=== PATIENT | male | born 1935 | race Asian ===

== ENCOUNTER 2017-09-29 13:53 | Inpatient (IN) | payer OTHER, MEDICARE ==
[~2017-09-29] VITALS: Ht 165.1 cm; Wt 67.6 kg
--- NOTE | 2017-09-29 13:54 | NUR ---
SAUMYA HOBBS, CURRENTLY AWAITING ROOM
[2017-09-29 13:55] VITALS: BP 97/61
--- NOTE | 2017-09-29 14:00 | NUR ---
82 Y/O M W/C/O GENERAL WEAKNESS AND DECREASED APPETITE X 2 DAYS CHRONIC RASH TO LEGS TORSO, INCREASED X YESTERDAY---EMS ADMINISTERED 25MG BENADRYL IV---DENIES N/V/D +ORTHOSTATICS HX---HTN, DM, GOUT RX----LISINOPRIL 20MG QD, AMLODIPINE 10MG QD, METFORMIN 500MG BID, ALLOPURINOL 100MG QD, COLCHINCINE 0.6MG BID PAIN, IRON 65MG , CENTRUM SILVER
--- NOTE | 2017-09-29 14:13 | NUR ---
PT TAKEN TO BED 2 BY EMS CREW
[2017-09-29] MEDS ORDERED: NACL 0.9% 1,000 ML IV ONE (14:50)
--- NOTE | 2017-09-29 15:00 | NUR ---
PT RESTING COMFORTABLY IN BED. NO S/S OF DISTRESS NOTED. DAUGHTER AT THE BEDSIDE
[2017-09-29 15:23] LABS: BASOPHILS % (AUTO) 0.3 % (0.0-2.0); EOSINOPHILS # (AUTO) 1.8 K/uL (0-0.4); EOSINOPHILS % (AUTO) 12.6 % (0.0-4.0); HEMATOCRIT 31.8 % (36-52); HEMOGLOBIN 9.8 g/dL (12.0-18.0); LYMPHOCYTES # (AUTO) 0.9 K/uL (2.0-11.5); LYMPHOCYTES % (AUTO) 6.4 % (20.5-51.1); MEAN CORPUSCULAR HEMOGLOBIN 25 pg (27-31); MEAN CORPUSCULAR HGB CONC 31 g/dL (33-37); MEAN CORPUSCULAR VOLUME 81.2 fL (80-94); MONOCYTES # (AUTO) 0.5 K/uL (0.8-1.0); MONOCYTES % (AUTO) 3.4 % (1.7-9.3); NEUTROPHILS # (AUTO) 10.8 K/uL (1.8-7.7); NEUTROPHILS % (AUTO) 77.3 % (42.2-75.2); PLATELET COUNT (AUTO) 395 K/uL (140-450); RED BLOOD CELL COUNT(AUTO) 3.91 MIL/uL (4.20-6.10); RED CELL DISTRIBUTION WIDTH 17.5 % (11.6-13.7)
[2017-09-29 15:42] LABS: APPEARANCE,URINE CLEAR (CLEAR); BILIRUBIN,URINE NEGATIVE (NEGATIVE); BLOOD, URINE NEGATIVE (NEGATIVE); COLOR,URINE YELLOW (YELLOW); LEUKOCYTE ESTERASE ,URINE NEGATIVE (NEGATIVE); NITRITE, URINE NEGATIVE (NEGATIVE); PH,URINE 5.5 (5.0-9.0); UGLUCOSE NEGATIVE (NEGATIVE)
[2017-09-29 15:43] LABS: ANION GAP 17.1 (8-16); CARBON DIOXIDE 19.4 mmol/L (21-32); CHLORIDE 99 mmol/L (98-107); CREATININE 2.3 mg/dL (0.7-1.3); GLUCOSE 103 mg/dL (74-106); POTASSIUM 4.5 mmol/L (3.5-5.1); SODIUM SERUM 131 mmol/L (136-145); UREA NITROGEN, BLOOD 34 mg/dL (7-18)
[2017-09-29 15:49] LABS: ALBUMIN 2.7 g/dL (3.4-5.0); ASPARTATE AMINOTRANSFERASE 10 U/L (15-37); TOTAL BILIRUBIN 0.3 mg/dL (0.0-1.0)
--- NOTE | 2017-09-29 16:45 | NUR ---
PT RESTING COMFORTABLY IN BED. NO S/S OF DISTRESS NOTED. RR EVEN/UNLABORED. PT GIVEN URINAL. DAUGHTER AT THE BEDSIDE
--- NOTE | 2017-09-29 17:30 | NUR ---
NOTED PT TACHY 140'S AND SHIVERING---MD NOTIFIED RECTAL TEMP 100.6 F
[2017-09-29] MEDS ORDERED: ACETAMINOPHEN 650 MG/20.3 ML UDC PO ONE (17:40)
[2017-09-29] MEDS ORDERED: NACL 0.9% 500 ML IV ONE (17:40)
[2017-09-29] MEDS ORDERED: ACETAMINOPHEN 650 MG/20.3 ML UDC ONE (17:41)
--- NOTE | 2017-09-29 18:10 | NUR ---
MD at bedside---pt continues to denie pain, mild sob--placed on 3L NC denies headache or nausea ----will continue to observe and monitor for changes.
[2017-09-29] MEDS ORDERED: AMLO10TA PO (18:28)
[2017-09-29] MEDS ORDERED: METF500T PO (18:28)
[2017-09-29] MEDS ORDERED: LISI-420 PO (18:28)
[2017-09-29] MEDS ORDERED: COLC0.6C PO (18:28)
[2017-09-29] MEDS ORDERED: MULT-2527 PO (18:28)
[2017-09-29] MEDS ORDERED: FERR-252 PO (18:28)
[2017-09-29] MEDS ORDERED: ALLO100T21 PO (18:28)
--- NOTE | 2017-09-29 18:30 | NUR ---
Patient will be admitted to care of DR. BRIGGS. Admited to TELE. Will go to room 112 A. Belongings list completed. Report to AUTUMN XIONG.
[2017-09-29] MEDS ORDERED: MORPHINE SULFATE 2 MG/ML SYR IVP PRN (18:35)
[2017-09-29] MEDS ORDERED: INSULIN LISPRO SLIDING SCALE 100 UNITS/ML VIAL SUBQ PRN (18:35)
[2017-09-29] MEDS ORDERED: DEXTROSE 50% 50 ML SYR IVP PRN (18:35)
[2017-09-29] MEDS ORDERED: ONDANSETRON 4 MG/2 ML VIAL IVP PRN (18:35)
--- NOTE | 2017-09-29 20:25 | NUR ---
ADMITTED A 82 Y/O MALE FROM ER VIA [facility] WITH CHIEF COMPLAIN OF GENERALIZED WEAKNESS. PATIENT TRANSFERRED TO BED WITH 1 ASSIST. PATIENT AAOX3, ABLE TO FOLLOW COMMANDS. MRSA NASAL SWAB DONE. NO PERSONAL BELONGINGS. PLAN OF CARE EXPLAINED TO PATIENT. FALL PRECAUTION IMPLEMENTED. CALL LIGHT WITHIN REACH. ROUTINE ADMISSION CARE AND CARRY OUT ORDERS.WILL CONTINUE TO MONITOR.
[2017-09-29] MEDS ORDERED: metFORMIN 500 MG TAB PO SCH (21:00)
[2017-09-29] MEDS: NACL 0.9% 1,000 ML IV SCH (21:00)
[2017-09-29] MEDS: LEVOFLOXACIN 250 MG/D5 PREMIX 50 ML IV SCH (21:05)
[2017-09-29] MEDS: BLOOD GLUCOSE MONITORING 1 DEV DEV FS SCH (21:13)
[2017-09-29] MEDS ORDERED: VANCOMYCIN PER PHARMACY MC PRN (22:10)
--- NOTE | 2017-09-29 22:45 | NUR ---
MEDICATION GIVEN PER MD's. PLACE PATIENT IN COMFORTABLE POSITION. EXPLAINED THE PLAN OF CARE AND VERBALIZED UNDERSTANDING. EXPLAINED TO PATIENT TO USE THE CALL LIGHT IF HE NEEDS TO GET UP OR NEED SOMETHING. ASSIST PATIENT TO SIDE OF THE BED TO URINATE USING URINAL. WILL CONTINUE TO MONITOR.
[2017-09-29] MEDS: ACETAMINOPHEN 325 MG TAB PO PRN (23:23)
[2017-09-29] MEDS ORDERED: VANCOMYCIN 1GM/DEXT 5% PREMIX 200 ML IV SCH (23:30)
[2017-09-29] MEDS ORDERED: VANCOMYCIN 1,000 MG VIAL ONE (23:32)
[2017-09-30] VITALS (7 sets, daily range): BP systolic 101–132; BP diastolic 58–69
--- NOTE | 2017-09-30 01:40 | NUR ---
ASSISTED PATIENT TO URINATE USING URINAL SITTING ON THE OF THE BED. INSTRUCTED PATIENT TO USE THE CALL LIGHT TO ASK FOR HELP AND PATIENT VERBALIZED UNDERSTANDING. FALL PRECAUTION IMPLEMENTED.
--- NOTE | 2017-09-30 04:00 | NUR ---
SEEN PATIENT ASLEEP ON BED COMFORTABLY . CALL LIGHT WITHIN REACH. ALL NEEDS ATTENDED. WILL CONTINUE TO MONITOR.
[2017-09-30] MEDS: NACL 0.9% 1,000 ML IV SCH ×2 (04:33→09:33)
[2017-09-30] MEDS: ACETAMINOPHEN 325 MG TAB PO PRN ×3 (05:15→23:00)
[2017-09-30] MEDS: BLOOD GLUCOSE MONITORING 1 DEV DEV FS SCH ×4 (06:51→20:48)
--- NOTE | 2017-09-30 07:08 | NUR ---
ENDORSEMENT GIVEN TO AM SHIFT NURSE AT PATIENT BEDSIDE. CALL LIGHTS WITHIN REACH. PATIENT IN STABLE CONDITION.
--- NOTE | 2017-09-30 07:08 | NUR ---
ASSUMED CONTINUITY OF CARE. NO SIGNS AND SYMPTOMS OF ACUTE DISTRESS NOTED. INITIAL ASSESSMENT DONE. KEEP COMFORTABLE ON BED. EXPLAINED DIAGNOSIS, PLAN OF CARE, PAIN MANAGEMENT TEACHING, USE OF CALL LIGHT/BED/TV/BATHROOM. VERBALIZED UNDERSTANDING. FALL PRECAUTION APPLIED. CALL LIGHT WITHIN REACH.
[2017-09-30 07:13] LABS: BASOPHILS % (AUTO) 0.1 % (0.0-2.0); HEMATOCRIT 27.7 % (36-52); HEMOGLOBIN 8.8 g/dL (12.0-18.0); LYMPHOCYTES # (AUTO) 0.4 K/uL (2.0-11.5); LYMPHOCYTES % (AUTO) 3.7 % (20.5-51.1); MEAN CORPUSCULAR HEMOGLOBIN 26 pg (27-31); MEAN CORPUSCULAR HGB CONC 32 g/dL (33-37); MEAN CORPUSCULAR VOLUME 80.4 fL (80-94); MONOCYTES # (AUTO) 0.4 K/uL (0.8-1.0); MONOCYTES % (AUTO) 3.3 % (1.7-9.3); NEUTROPHILS # (AUTO) 10.4 K/uL (1.8-7.7); NEUTROPHILS % (AUTO) 84.9 % (42.2-75.2); PLATELET COUNT (AUTO) 303 K/uL (140-450); RED BLOOD CELL COUNT(AUTO) 3.44 MIL/uL (4.20-6.10); RED CELL DISTRIBUTION WIDTH 18.1 % (11.6-13.7); WHITE BLOOD COUNT (AUTO) 12.2 K/uL (4.8-10.8)
[2017-09-30] MEDS ORDERED: CLINICAL MONITORING MC PRN (07:15)
[2017-09-30 07:19] LABS: ANION GAP 15.6 (8-16); CARBON DIOXIDE 19.2 mmol/L (21-32); CHLORIDE 104 mmol/L (98-107); CREATININE 1.7 mg/dL (0.7-1.3); GLUCOSE 122 mg/dL (74-106); POTASSIUM 4.8 mmol/L (3.5-5.1); SODIUM SERUM 134 mmol/L (136-145); UREA NITROGEN, BLOOD 23 mg/dL (7-18)
--- NOTE | 2017-09-30 07:30 | NUR ---
Patient's Plan of Care was discussed and reviewed with WELL CLEANER: LAURA Bear
[2017-09-30] MEDS ORDERED: MAG SULF 2000 MG/WATER PREMIX 50 ML IV ONE (08:25)
--- NOTE | 2017-09-30 08:43 | NUR ---
PATIENT HAS BEEN SCREENED AND CATEGORIZED HIGH NUTRITION RISK. PATIENT WILL BE SEEN WITHIN 1-2 DAYS OF ADMISSION. 09/30/17 10/01/[address]
[2017-09-30] MEDS ORDERED: [UNRECOGNIZED DRUG - OTHER] PO SCH (09:00)
[2017-09-30] MEDS ORDERED: amLODIPine 5 MG TAB PO SCH (09:00)
[2017-09-30] MEDS ORDERED: LYCOPEN PO SCH (09:00)
[2017-09-30] MEDS ORDERED: ALLOPURINOL 100 MG TAB PO SCH (09:00)
[2017-09-30] MEDS ORDERED: MULTIVIT MIN PO SCH (09:00)
[2017-09-30] MEDS ORDERED: LISINOPRIL 20 MG TAB PO SCH (09:00)
[2017-09-30] MEDS ORDERED: LUTEIN PO SCH (09:00)
[2017-09-30] MEDS ORDERED: FERROUS SULFATE 325 MG TABEC PO SCH (09:00)
[2017-09-30] MEDS: MULTIVITAMIN/MINERALS 1 TAB PO SCH (09:09)
[2017-09-30] MEDS: FERROUS SULFATE 325 MG TABEC PO SCH (09:09)
[2017-09-30] MEDS: ENOXAPARIN 30 MG/0.3 ML SYR SUBQ SCH (09:13)
[2017-09-30] MEDS: MAGNESIUM SULFATE 1GM in DEXTROSE 5% 100 ML PREMIX IV SCH ×2 (09:49→10:57)
--- NOTE | 2017-09-30 10:42 | NUR ---
SHAHID GERARDO CA,E REVIEWED PT. CHART, INFORMED OF PT. GENERALIZED SKIN RASH, AND INFORMED OF PT. LATEST LAB RESULTS.
[2017-09-30] MEDS: HYDROCORTISONE 2.5% OINT 30 GM TUBE TP SCH ×2 (11:25→20:49)
--- NOTE | 2017-09-30 12:00 | NUR ---
VITALS SIGNS STABLE. NO C/O PAIN. WILL MONITOR.
--- NOTE | 2017-09-30 14:31 | NUR ---
CM NOTE INITIAL REVIEW FAXED TO [facility] [phone] AMANDA # [phone]
--- NOTE | 2017-09-30 16:02 | NUR ---
DR. MEI [facility] CAME, INFORMED THAT PT. TEMP WAS 101 DEGREE FAHRENHEIT TEMPORAL SCAN AT 1600, AND WAS MEDICATED WITH TYLENOL 650 MG PO. NO ADDITIONAL ORDER RECEIVED. INFORMED CHARGE NURSE OTF JOHNSON.
--- NOTE | 2017-09-30 17:45 | NUR ---
TEMP 98.8 TEMPORAL SCAN. NO ACUTE DISTRESS NOTED. CONTINUE APPLICATION OF COOLING MEASURE.
[2017-09-30] MEDS: LEVOFLOXACIN 250 MG/D5 PREMIX 50 ML IV SCH (17:56)
--- NOTE | 2017-09-30 19:06 | NUR ---
BEDSIDE REPORT GIVEN TO GUALBERTO JOHNSON. IVF INFUSING WELL. IN STABLE CONDITION. ALSO ENDORSED ABOUT PT. TEMP 101 AT 1600.
--- NOTE | 2017-09-30 19:30 | NUR ---
ASSUMED CARE OF PATIENT, AWAKE, ALERT AND ORIENTED. NO COMPLAINS. CALL LIGHT WITHIN REACH.
--- NOTE | 2017-09-30 20:00 | NUR ---
PLAN OF CARE DISCUSSED WITH PATIENT, NEEDS REINFORCEMENT. CALL LIGHT WITHIN REACH.
--- NOTE | 2017-09-30 21:00 | NUR ---
FAMILY AT BEDSIDE, PLAN OF CARE DISCUSSED WITH PATIENT AND FAMILY MEMBER. AFEBRILE.
--- NOTE | 2017-09-30 22:00 | NUR ---
T-98.8, ORAL TEMP. CALL LIGHT WITHIN REACH.
--- NOTE | 2017-09-30 23:00 | NUR ---
T-102.7, COOLING MEASURES RENDERED. TYLENOL GIVEN. CALL LIGHT WITHIN REACH. REPOSITIONED WITH RN.
--- NOTE | 2017-09-30 23:52 | NUR ---
ARIANA PEREZ, T-102.7 WILL RECHECK IN A FEW MINUTES. CALL LIGHT WITHIN REACH.
[2017-10-01] MEDS: NACL 0.9% 1,000 ML IV SCH ×3 (01:37→23:16)
--- NOTE | 2017-10-01 01:41 | NUR ---
T-98.4. NO COMPLAINS. VITAL SIGNS STABLE. EATING SNACK. CALL LIGHT WITHIN REACH.
[2017-10-01 04:08] VITALS: BP 110/72
--- NOTE | 2017-10-01 04:09 | NUR ---
VITAL SIGNS STABLE. NO COMPLAINS. AFEBRILE. ASLEEP EASILY AROUSABLE. CALL LIGHT WITHIN REACH.
[2017-10-01] MEDS: ACETAMINOPHEN 325 MG TAB PO PRN ×4 (05:14→23:05)
[2017-10-01] MEDS: BLOOD GLUCOSE MONITORING 1 DEV DEV FS SCH ×4 (05:57→20:42)
--- NOTE | 2017-10-01 07:19 | NUR ---
ENDORSED CARE AT BEDSIDE TO DAY SHIFT RN, PATIENT IN STABLE CONDITION.
--- NOTE | 2017-10-01 07:20 | NUR ---
RECEIVED BEDSIDE REPORT FROM MANAGER SAFE NURSE. PATIENT IS AWAKE, ALERT AND ORIENTEDX4. PATIENT SPEAKS TAGALOG. HE AMBULATES WITH ASSISTANCE. CC GENERALIZED WEAKNESS. URINAL AT BEDSIDE. PATIENT HAS RASHES AFTER HE ATE LOBSTER, PER PATIENT AND MANAGER SAFE NURSE RASHES HAVE GOTTEN BETTER. SKIN IS INTACT. IV ON L FA 18G INFUSING NS AT 75. IV IS CLEAN, DRY AND INTACT. TELE MONITOR IS IN PLACE. WILL CONTINUE TO MONITOR THE PATIENT. BED IN LOW POSITION. CALL LIGHT WITHIN REACH. FALL PRECAUTIONS IN PLACE.
[2017-10-01 07:21] LABS: HEMOGLOBIN 9.6 g/dL (12.0-18.0)
[2017-10-01 07:35] LABS: BASOPHILS % (AUTO) 0.2 % (0.0-2.0); EOSINOPHILS # (AUTO) 1.9 K/uL (0-0.4); EOSINOPHILS % (AUTO) 14.8 % (0.0-4.0); HEMATOCRIT 30.2 % (36-52); LYMPHOCYTES # (AUTO) 0.8 K/uL (2.0-11.5); MEAN CORPUSCULAR HEMOGLOBIN 25 pg (27-31); MEAN CORPUSCULAR HGB CONC 32 g/dL (33-37); MEAN CORPUSCULAR VOLUME 79.3 fL (80-94); MONOCYTES # (AUTO) 0.8 K/uL (0.8-1.0); MONOCYTES % (AUTO) 6.4 % (1.7-9.3); NEUTROPHILS # (AUTO) 9.3 K/uL (1.8-7.7); NEUTROPHILS % (AUTO) 72.6 % (42.2-75.2); PLATELET COUNT (AUTO) 350 K/uL (140-450); RED CELL DISTRIBUTION WIDTH 17.9 % (11.6-13.7); WHITE BLOOD COUNT (AUTO) 12.9 K/uL (4.8-10.8)
[2017-10-01 07:41] LABS: MAGNESIUM 1.5 mg/dL (1.8-2.4); URIC ACID 5.4 mg/dL (2.6-7.2)
[2017-10-01 07:44] LABS: ANION GAP 15.2 (8-16); CARBON DIOXIDE 19.2 mmol/L (21-32); CHLORIDE 99 mmol/L (98-107); CREATININE 1.3 mg/dL (0.7-1.3); GLUCOSE 103 mg/dL (74-106); POTASSIUM 4.4 mmol/L (3.5-5.1); SODIUM SERUM 129 mmol/L (136-145); UREA NITROGEN, BLOOD 15 mg/dL (7-18)
[2017-10-01 08:00] VITALS: BP 122/71
[2017-10-01] MEDS ORDERED: MAG SULF 2000 MG/WATER PREMIX 100 ML IV ONE (08:05)
[2017-10-01] MEDS: MAGNESIUM SULFATE 1GM in DEXTROSE 5% 100 ML PREMIX IV SCH ×4 (09:13→15:26)
[2017-10-01] MEDS: MULTIVITAMIN/MINERALS 1 TAB PO SCH (09:16)
[2017-10-01] MEDS: FERROUS SULFATE 325 MG TABEC PO SCH (09:16)
[2017-10-01] MEDS: HYDROCORTISONE 2.5% OINT 30 GM TUBE TP SCH ×2 (09:17→20:43)
[2017-10-01] MEDS: ENOXAPARIN 30 MG/0.3 ML SYR SUBQ SCH (09:24)
--- NOTE | 2017-10-01 09:25 | NUR ---
ADMINISTERED MEDS. PATIENT TOLERATED WELL. GAVE PRN TYLENOL. HR IS 102 AND TEMP IS 99.3 TO PREVENT FEVER. ADMINISTERED HYDROCORTISONE ON RASHES, BLE, BUE, CHEST, STOMACH. EDUCATED PATIENT NOT TO SCRATCH. PATIENT VERBALIZED UNDERSTANDING. WILL CONTINUE TO MONITOR THE PATIENT.
[2017-10-01] MEDS: VANCOMYCIN 750 MG in DEXTROSE 5% 250 ML IV SCH (11:31)
--- NOTE | 2017-10-01 11:38 | NUR ---
ADMINISTERED MEDS. PATIENT TOLERATED WELL. IV IS CLEAN, DRY AND INTACT. WILL CONTINUE TO MONITOR THE PATIENT.
[2017-10-01 12:00] VITALS: BP 125/71
--- NOTE | 2017-10-01 12:00 | NUR ---
Harness Puller Notes: I attempted to contact Patient's Daughter Berkley Martin at to discuss, confirm and gather additional information about patient. Patient's daughter was not available and I left her a voice mail MSG with my contact number and a request for a call back
--- NOTE | 2017-10-01 13:00 | NUR ---
ADMINISTERED PRN BENADRYL. PATIENT TOLERATED WELL. IV IS CLEAN, DRY AND INTACT. PATIENT IS REALLY ITCHY. WILL CONTINUE TO MONITOR THE PATIENT
--- NOTE | 2017-10-01 14:00 | NUR ---
CLINICAL REVIEW FAXED TO [facility] [phone]
--- NOTE | 2017-10-01 14:06 | NUR ---
10/01/17 RD INITIAL ASSESSMENT COMPLETED PLEASE REFER TO NUTRITION ASSESSMENT UNDER CARE ACTIVITY FOR ESTIMATED NUTRITIONAL NEEDS. 1. CONTINUE CCHO 60 GM WITH SOFT FOODS TOLERATED 2. IF PO INTAKE CONTINUES TO BE <50% PROVIDE PATIENT GLUCERNA QD 3. RD TO FOLLOW-UP 3-5 DAYS, MODERATE RISK LANDON JIMENEZ RD
--- NOTE | 2017-10-01 15:30 | NUR ---
ADMINISTERED PRN TYLENOL. PATIENT COMPLAINS OF CHILLS AND TEMP WAS 102.7. WILL REASSESS TEMP
[2017-10-01 16:00] VITALS: BP 129/43
--- NOTE | 2017-10-01 17:33 | NUR ---
DR MEI RECOMMENDED TO CALL DR NEWSOME. PATIENTS CULTURES ARE NEGATIVE BUT TEMP IS STILL UP TO 102.8 AND HR AT 125. CALLED DR NEWSOME AND HE SAID HE WILL BE HERE AND ASSESS THE PATIENT.
[2017-10-01] MEDS: LEVOFLOXACIN 250 MG/D5 PREMIX 50 ML IV SCH (17:50)
--- NOTE | 2017-10-01 17:54 | NUR ---
ADMINISTERED MEDS. PATIENT TOLERATED WELL. IV IS CLEAN, DRY AND INTACT. PATIENT EATING HIS DINNER. WILL CONTINUE TO MONITOR THE PATIENT
--- NOTE | 2017-10-01 17:56 | NUR ---
PHYSICAL THERAPY CO-SIGN The Physical Therapy Progress Notes documented by Vat Tender have been reviewed. Reviewed/Co-Signed by: Abby Byrnes PT Documentation Done by:MADISYN BENITEZ NETTING INSPECTOR POC REVIEWED W/ NETTING INSPECTOR; WILL BENEFIT W/ P.T. AFTER ACUTE STAY. Addendum: 10/01/17 at 1756 by Abby Byrnes PT Amended: Links added.
--- NOTE | 2017-10-01 19:20 | NUR ---
GAVE BEDSIDE REPORT TO SOLAR LAB TECHNICIAN NURSE. PATIENT IN STABLE CONDITION
--- NOTE | 2017-10-01 19:21 | NUR ---
RECEIVED PT IN STABLE CONDITION FROM AM NURSE. AWAKE, ALERT AND ORIENTED X4. WITH NO C/O ANY DISCOMFORT NOR PAIN NOTED. ON TELE MONITOR -ST. HAS GEN WEAKNESS . WITH CALL LIGHT , URINAL AND BSC WITHIN EASY REACH. SKIN WITH RASHES MOSTLY ALL OVER THE BODY. IVF INFUSING WELL ON THE RT FA G#18. CLEAR AND PATENT. PLAN OF CARE DISCUSSED AND VERBALIZED UNDERSTANDING. WILL CONTINUE TO MONITOR.
[2017-10-01 20:00] VITALS: BP 109/68
--- NOTE | 2017-10-01 20:42 | NUR ---
BLOOD SUGAR WAS CHECKED RESULT 131. NO INSULIN NEEDED. PROVIDED SOME SNACK.
--- NOTE | 2017-10-01 20:50 | NUR ---
DR. RAMIREZ CAME AND CHECKED ON PT. WILL REVIEW PT MEDICATIONS.
--- NOTE | 2017-10-01 23:05 | NUR ---
PT FEELS REALLY COLD, CHILLY. TEMP CHECKED 101.0 . COOLING MEASURES DONE. TYLENOL 650 MG PO GIVEN. WILL CONTINUE TO MONITOR.
[2017-10-02 00:10] VITALS: BP 123/67
--- NOTE | 2017-10-02 00:30 | NUR ---
TEMP RECHECKED RESULT 99.2 WILL CONTINUE TO MONITOR.
--- NOTE | 2017-10-02 03:00 | NUR ---
MADE ROUNDS. PT ASLEEP. NO S/S OF ANY DISCOMFORT NOTED.
[2017-10-02 04:36] VITALS: BP 146/83
[2017-10-02] MEDS: BLOOD GLUCOSE MONITORING 1 DEV DEV FS SCH ×4 (05:58→21:21)
[2017-10-02] MEDS: ACETAMINOPHEN 325 MG TAB PO PRN ×3 (06:03→20:06)
--- NOTE | 2017-10-02 06:03 | NUR ---
PT FEE VERY COLD AND SHIVERING. TEMP CHECKED AGAIN 101.9 COOLING MEASURES DONE. TYLENOL 650 MG PO GIVEN. WILL CONITNUE TO MONITOR.
--- NOTE | 2017-10-02 06:50 | NUR ---
PT NOT FEELING COLD ANYMORE. TEMP RECHECKED 100.9 . WILL ENDORSED TO AM NURSE.
--- NOTE | 2017-10-02 07:10 | NUR ---
ENDORSED PT IN STABLE CONDITION TO AM NURSE FOR CONTINUITY OF CARE.
--- NOTE | 2017-10-02 07:12 | NUR ---
RECEIVED BEDSIDE REPORT FROM SCHOOL AGE TEACHER NURSE. PATIENT IS SLEEPING. NO SIGNS OF DISTRESS ON ROOM AIR. IV ON L FA 22G INFUSING NS AT 75ML/HR. IV IS CLEAN, DRY AND INTACT. RASHES THROUGHOUT BODY. PATIENT HAS URINAL AND BEDSIDE COMMODE AT BEDSIDE. HE IS WEAK. PT RECOMMENDS A WALKER AND POSSIBLY HOME HEALTH. PATIENT HAS A WALKER AT HOME BUT DOES NOT USE IT. TELE MONITOR IN PLACE. FALL PRECAUTIONS IN PLACE. WILL CONTINUE TO MONITOR THE PATIENT.
[2017-10-02 07:18] LABS: BASOPHILS % (AUTO) 0.4 % (0.0-2.0); EOSINOPHILS # (AUTO) 1.8 K/uL (0-0.4); EOSINOPHILS % (AUTO) 14.2 % (0.0-4.0); HEMATOCRIT 30.4 % (36-52); HEMOGLOBIN 9.8 g/dL (12.0-18.0); MEAN CORPUSCULAR HEMOGLOBIN 26 pg (27-31); MEAN CORPUSCULAR HGB CONC 32 g/dL (33-37); MEAN CORPUSCULAR VOLUME 79.5 fL (80-94); MONOCYTES # (AUTO) 0.5 K/uL (0.8-1.0); NEUTROPHILS # (AUTO) 9.3 K/uL (1.8-7.7); NEUTROPHILS % (AUTO) 73.4 % (42.2-75.2); PLATELET COUNT (AUTO) 343 K/uL (140-450); RED BLOOD CELL COUNT(AUTO) 3.83 MIL/uL (4.20-6.10); WHITE BLOOD COUNT (AUTO) 12.7 K/uL (4.8-10.8)
[2017-10-02 07:43] LABS: ANION GAP 16.2 (8-16); CARBON DIOXIDE 19.9 mmol/L (21-32); CHLORIDE 100 mmol/L (98-107); CREATININE 1.4 mg/dL (0.7-1.3); GLUCOSE 103 mg/dL (74-106); POTASSIUM 4.1 mmol/L (3.5-5.1); SODIUM SERUM 132 mmol/L (136-145); UREA NITROGEN, BLOOD 11 mg/dL (7-18)
[2017-10-02 08:00] VITALS: BP 115/76
[2017-10-02] MEDS ORDERED: MAG SULF 2000 MG/WATER PREMIX 50 ML IV ONE (08:00)
[2017-10-02] MEDS: ENOXAPARIN 30 MG/0.3 ML SYR SUBQ SCH (09:22)
[2017-10-02] MEDS: MAGNESIUM SULFATE 1GM in DEXTROSE 5% 100 ML PREMIX IV SCH ×2 (09:23→11:30)
[2017-10-02] MEDS: MULTIVITAMIN/MINERALS 1 TAB PO SCH (09:23)
[2017-10-02] MEDS: HYDROCORTISONE 2.5% OINT 30 GM TUBE TP SCH (09:23)
[2017-10-02] MEDS: FERROUS SULFATE 325 MG TABEC PO SCH ×3 (09:23→16:09)
--- NOTE | 2017-10-02 09:34 | NUR ---
ADMINISTERED MEDS TO PATIENT. PATIENT TOLERATED WELL. IV IS CLEAN, DRY AND INTACT. WILL CONTINUE TO MONITOR THE PATIENT
[2017-10-02] MEDS: NACL 0.9% 1,000 ML IV SCH (11:30)
--- NOTE | 2017-10-02 11:34 | NUR ---
ADMINISTERED MEDS. IV IS CLEAN, DRY AND INTACT. PT WALKED WITH THE PATIENT. PATIENT IS ON THE CHAIR NOW. WILL CONTINUE TO MONITOR THE PATIENT
[2017-10-02 12:00] VITALS: BP 119/73
[2017-10-02] MEDS: VANCOMYCIN 750 MG in DEXTROSE 5% 250 ML IV SCH (12:56)
--- NOTE | 2017-10-02 13:03 | NUR ---
Clinical review faxed to [facility] at [phone]
--- NOTE | 2017-10-02 13:08 | NUR ---
ADMINISTERED PRN TYLENOL FOR A SLIGHT FEVER OF 100.7. PATIENT FELT THE CHILLS. WILL CONTINUE TO MONITOR
[2017-10-02] MEDS ORDERED: hydrOXYzine HCL 10 MG TAB PO PRN (14:40)
--- NOTE | 2017-10-02 15:14 | NUR ---
PATIENT IS GETTING A CHEST XRAY. PATIENT TRANSPORTED WITH WHEELCHAIR.
--- NOTE | 2017-10-02 15:36 | NUR ---
RECEIVED ORDER FOR PATIENT TO BE TRANSFERED TO AOTHER FACILITY. PATIENT NEEDS NUCLEAR WBC INDIUM SCAN. I CALLED AMANDA FROM [facility] AND SHE SAID THEY ARE NOT CONTRACTED WITH [facility], NEED TO CALL [facility]. I CALLED [facility] AND SPOKE WITH ROLAND AND FAXED HER THE FACE SHEET AND ORDER. I TOLD HER THAT I SPOKE WTIH DR. MEI AND SHE SAID SHE WOULD BE THE ADMITTING AND SHE WOULD CALL [facility]. PER AMANDA AT [facility], AUTH FOR ALS TRANSPORT BY [facility] IS [id number]. SHE WILL CALL ME WITH THE AUTH FOR [facility]. PER ROLAND AT [facility], NO TELE BEDS YET.
--- NOTE | 2017-10-02 15:46 | NUR ---
AMANDA FROM [facility] CALLED THE AUTH NUMBER TO [facility] IS [id number]. I CALLED [facility] AND INFORMED ROLAND OF THE AUTH NUMBER AND INFORMED HER WHEN SHE GETS A BED TO CALL THE FLOOR. LUIS ARMANDO XIONGBLACKJACK DEALER NURSE AWARE.
[2017-10-02 16:00] VITALS: BP 113/61
--- NOTE | 2017-10-02 16:10 | NUR ---
ADMINISTERED MEDS PRN AND ORDERED. PATIENT TOLERATED WELL. WILL CONTINUE TO MONITOR THE PATIENT Addendum: 10/02/17 at 1611 by Melissa Mendez RN PRN MED FOR ITCHING GIVEN
[2017-10-02] MEDS: LEVOFLOXACIN 250 MG/D5 PREMIX 50 ML IV SCH (19:35)
--- NOTE | 2017-10-02 19:58 | NUR ---
RECEIVED PT PT IN STABLE CONDITION FROM AM NURSE. AWAKE,ALERT AND ORIENTED X4. ON TELE MONITOR. NO DISTRESS NOTED. IVF INFUSING WELL ON THE LT FA#22. STILL WITH RASHES ALL OVER THE BODY. BUT NO C/O ITCHING AT THIS TIME. STILL WITH GENERALIZED WEAKNESS. ENCOURAGED TO CALL IF NEED ASSISTANCE. CALL LIGHT AND URINAL PLACED WITHIN EASY REACH. BED ON LOW POSITION. FOR TRANSFER TO [facility] . STILL WORKING ON DISCHARGE PAPERS TO BE FINALIZED BY
--- NOTE | 2017-10-02 19:58 | NUR ---
GAVE BEDSIDE REPORT TO OVER SHORT AND DAMAGE CLERK NURSE. PATIENT IS IN STABLE CONDITION Addendum: 10/02/17 at 2014 by Melissa Mendez RN TIME IS 1914
[2017-10-02] MEDS ORDERED: ACET-2619 PO ×2 (20:01→20:03)
[2017-10-02 20:04] VITALS: BP 152/79
[2017-10-02] MEDS ORDERED: BLOO1STR56 MC (20:06)
--- NOTE | 2017-10-02 20:23 | NUR ---
PATIENT IS UNABLE TO TRANSFER D/T MEDICATIONS CANNOT BE FINALIZED BECAUSE DR NEEDS TO FINALIZED MEDS. DR ORTEGA SAID TO HOLD THE TRANSFER. IT DOES NOT ALLOW ME. EMELY AWARE. EMELY WILL CALL RAYMUNDO MARLOW AND ANGELINE PALMER.
--- NOTE | 2017-10-02 20:30 | NUR ---
DR MEI CALLED REGARDING TRANSFER OF PT TO [facility]. SHE SAID SHE WILL TRY TO DO THE DISCHARGE FORMS TO FINALIZED THE MEDICATIONS THAT PT HAS TO CONTINUE IN [place]. WILL WAIT TILL MD FINALIZED .
[2017-10-02] MEDS ORDERED: FLUC100T1 PO (20:35)
[2017-10-02] MEDS ORDERED: ATA10 PO (20:37)
--- NOTE | 2017-10-02 20:51 | NUR ---
INGA CHAVES TO RECEIVE PT TO [facility] JUST CALLED. GAVE REPORT ON PT CONDITION. WILL GO TO ROOM 685 A.
--- NOTE | 2017-10-02 22:02 | NUR ---
CALLED VALERIE JUNIORTIFFANIETwin , DAUGHTER TO MADE ER AWARE ABOUT PT TRANSFER TO [facility] ROOM 685 A. SHE SAID [facility] CALLED HER REGARDING THIS.
--- NOTE | 2017-10-02 23:30 | NUR ---
PICKED UP BY [facility] FOR TRANSFER TO [facility] BY AARTI IN STABLE CONDITION. ID BANDS REMOVED . WITH IV ACCESS ON THE LT FA G#18. NO OTHER PERSONAL BELONGINGS OF PT FOUND. ALL DISCHARGE PAPERS WITH PT UPON TRANSFER.
[2017-10-03] MEDS ORDERED: FLUCONAZOLE 100 MG TAB PO SCH (09:00)
--- NOTE | 2017-10-17 08:09 | NUR ---
RETRO FAXED DISCHARGE SUMMARY TO [facility] [phone]
== END 2017-10-02 23:30 | disposition short-term general hospital (02) | DRG 720 ==
LOC: MED 13:53 → MMU 19:08 → MTU 20:39
PROVIDERS: ADMIT Hospitalist; ATTEND Hospitalist
DX: A41.9 Sepsis, unspecified organism (principal); E43 Unspecified severe protein-calorie malnutrition; E87.2 Acidosis; N17.9 Acute kidney failure, unspecified; E11.22 Type 2 diabetes mellitus with diabetic chronic kidney disease; D64.9 Anemia, unspecified; E86.0 Dehydration; E87.1 Hypo-osmolality and hyponatremia; E83.42 Hypomagnesemia; E83.51 Hypocalcemia; D18.1 Lymphangioma, any site; T50.4X5A Adverse effect of drugs affecting uric acid metabolism, initial encounter; L25.1 Unspecified contact dermatitis due to drugs in contact with skin; I12.9 Hypertensive chronic kidney disease with stage 1 through stage 4 chronic kidney disease, or unspecified chronic kidney disease; N18.9 Chronic kidney disease, unspecified; Z79.899 Other long term (current) drug therapy; Z79.84 Long term (current) use of oral hypoglycemic drugs; Z90.49 Acquired absence of other specified parts of digestive tract; Y92.89 Other specified places as the place of occurrence of the external cause
CPT/HCPCS: 36415; 70450; 71045; 71250; 80048; 80053; 80202; 81003; 82330; 82728; 82948; 83540; 83605; 83690; 83735; 83880; 84484; 84550; 85025; 85610; 85730; 87040; 87081; 87086; 93005; 96360; 97110; 97116; 97140; 97530; 99291; J1650; J1815; J1956; J3370; J7030; J7060; Q0163